=== PATIENT | male | born 1965 | race Caucasian/White ===

== ENCOUNTER 2021-02-15 17:52 | Observation (INO) ==
[2021-02-15] MEDS ORDERED: SODIUM CHLORIDE 0.9% 1,000 ML IV STA (18:21)
[2021-02-15 18:28] LABS: Basophils # 0.1 10*3/uL (0.0-0.2); Basophils % 0.8 % (0.0-0.8); Eosinophils # 0.2 10*3/uL (0.0-0.87); Eosinophils % 1.8 % (0.00-10.9); Hematocrit 44.2 VOL% (42.0-52.0); Hemoglobin 14.6 GM/DL (14.0-18.0); Immature Granulocytes % 0.7 %; Immature Granulocytes Absolute 0.09 #; Lymphocytes # 1.8 10*3/uL (1.4-4.0); Lymphocytes % 13.5 % (21.2-54.2); Mean Corpuscular Volume 96.7 FL (87-102); Mean Platelet Volume 10.4 FL (9.6-12.0); Monocytes % 6.1 % (1.7-12.7); Neutrophils % 77.1 % (38.7-73.9); Platelet Count 193 T/CUMM (130-400); Red Blood Count 4.57 MC/CUMM (3.8-5.5); Red Cell Distribution Width 13.9 % (9.3-17.3); White Blood Count 13.1 T/CUMM (4-12)
[2021-02-15 19:01] LABS: Acetaminophen < 2.0 UG/ML (10-30); Salicylate < 2.8 MG/DL (2.8-20)
[2021-02-15 19:10] LABS: Bacteria,Urine Occasional /HPF (Few); Bilirubin,Urine Negative (Negative); Blood, Urine Negative (Negative); Glucose,Urine (UA) Negative (Negative); Ketones,Urine 5 mg/dL (Negative); Mucus,Urine Occasional /LPF (Occasional); Nitrite,Urine Negative (Negative); Protein,Urine Negative; Squamous Epithelial Cell,Urine Occasional /HPF (0-10); Urine Appearance CLEAR (Clear); Urine Color Yellow (Yellow); Urine Specific Gravity 1.024 (1.001-1.035)
[2021-02-15 19:14] LABS: Alanine Aminotransferase 26 U/L (16-61); Albumin 3.8 G/DL (3.4-5.0); Alkaline Phosphatase 71 U/L (45-117); Aspartate Amino Transferase 19 U/L (0-37); Blood Urea Nitrogen 16 MG/DL (7-18); Calcium 8.8 MG/DL (8.5-10.1); Carbon Dioxide 26 MMOL/L (21-32); Estimated Glom Filtration Rate 0 ML/MIN; Glucose 97 MG/DL (74-106); Osmolality,Calculated 277.5 MOS/KG (273-304); Potassium 4.3 MMOL/L (3.5-5.1); Sodium 139 MMOL/L (136-145); Thyroid Stimulating Hormone 0.453 uIU/ml (0.358-3.74)
[2021-02-15 19:15] LABS: Barbiturates Screen,Urine Negative (Negative); Benzodiazepines Screen,Urine Negative (Negative); Cannabinoid Screen,Urine Negative (Negative); Opiate Screen,Urine Negative (Negative); Phencyclidine Screen,Urine Negative (Negative)
[2021-02-16 00:07] LABS: Barbiturates Screen,Urine Negative (Negative); Benzodiazepines Screen,Urine Negative (Negative); Cannabinoid Screen,Urine Negative (Negative); Opiate Screen,Urine Negative (Negative); Phencyclidine Screen,Urine Negative (Negative)
[2021-02-16] MEDS ORDERED: diphenhydrAMINE CAP 25 MG CAPSULE PO PRN (00:31)
[2021-02-16] MEDS ORDERED: ACETAMINOPHEN 325 MG TABLET PO PRN (00:31)
[2021-02-16] MEDS ORDERED: hydrALAZINE 20 MG/1 ML VIAL IV PRN (00:31)
[2021-02-16] MEDS ORDERED: GLUCAGON 1 MG VIAL IM PRN (00:31)
[2021-02-16] MEDS ORDERED: NICOTINE 21 MG/24 HR PATCH TRANSDERM PRN (00:31)
[2021-02-16] MEDS ORDERED: ONDANSETRON 4 MG/2 ML VIAL IV PRN (00:31)
[2021-02-16] MEDS ORDERED: ZALEPLON 5 MG CAPSULE PO PRN (00:31)
[2021-02-16] MEDS ORDERED: DEXTROSE 50% 25 GM/50 ML VIAL IV PRN (00:31)
[2021-02-16] MEDS ORDERED: guaiFENesin/DM ER 600-30 MG TABLET PO PRN (00:31)
[2021-02-16] MEDS: SODIUM CHLORIDE 0.9% 1,000 ML IV SCH ×3 (01:50→21:07)
[2021-02-16 05:06] LABS: Basophils # 0.1 10*3/uL (0.0-0.2); Basophils % 0.8 % (0.0-0.8); Eosinophils # 0.2 10*3/uL (0.0-0.87); Eosinophils % 2.2 % (0.00-10.9); Hematocrit 45.9 VOL% (42.0-52.0); Hemoglobin 14.8 GM/DL (14.0-18.0); Immature Granulocytes % 0.4 %; Immature Granulocytes Absolute 0.04 #; Lymphocytes % 22.3 % (21.2-54.2); Mean Corpuscular HGB Conc 32.2 GM/DL (32-36); Mean Platelet Volume 10.6 FL (9.6-12.0); Neutrophils % 66.3 % (38.7-73.9); Platelet Count 153 T/CUMM (130-400); Red Blood Count 4.59 MC/CUMM (3.8-5.5); Red Cell Distribution Width 13.7 % (9.3-17.3); White Blood Count 9.2 T/CUMM (4-12)
[2021-02-16 05:36] LABS: Calcium 8.7 MG/DL (8.5-10.1); Osmolality,Calculated 271.8 MOS/KG (273-304); Potassium 4.1 MMOL/L (3.5-5.1)
[2021-02-16] MEDS ORDERED: GABAPENTIN 100 MG CAPSULE PO SCH (09:00)
[2021-02-16] MEDS: METOPROLOL TARTRATE 50 MG TABLET PO SCH ×2 (09:29→20:14)
[2021-02-16] MEDS: amLODIPine 10 MG TABLET PO SCH (09:29)
[2021-02-16] MEDS: PANTOPRAZOLE 40 MG TABLET PO SCH (09:29)
[2021-02-16] MEDS: MULTIVITAMIN (CENTRUM) TABLET PO SCH (09:29)
[2021-02-16] MEDS: FOLIC ACID 1 MG TABLET PO SCH (09:30)
[2021-02-16] MEDS: THIAMINE 100 MG TABLET PO SCH ×2 (09:30→20:13)
[2021-02-16] MEDS: CYCLOBENZAPRINE 10 MG TABLET PO PRN (12:14)
[2021-02-16] MEDS: GABAPENTIN 100 MG CAPSULE PO SCH ×2 (15:59→20:13)
[2021-02-17] MEDS: SODIUM CHLORIDE 0.9% 1,000 ML IV SCH ×2 (06:49→16:53)
[2021-02-17] MEDS: THIAMINE 100 MG TABLET PO SCH ×2 (10:02→20:48)
[2021-02-17] MEDS: MULTIVITAMIN (CENTRUM) TABLET PO SCH (10:02)
[2021-02-17] MEDS: GABAPENTIN 100 MG CAPSULE PO SCH ×3 (10:02→20:48)
[2021-02-17] MEDS: amLODIPine 10 MG TABLET PO SCH (10:03)
[2021-02-17] MEDS: FOLIC ACID 1 MG TABLET PO SCH (10:03)
[2021-02-17] MEDS: METOPROLOL TARTRATE 50 MG TABLET PO SCH ×2 (10:03→20:48)
[2021-02-17] MEDS: PANTOPRAZOLE 40 MG TABLET PO SCH (10:03)
[2021-02-17] MEDS: CYCLOBENZAPRINE 10 MG TABLET PO PRN (16:49)
[2021-02-18] MEDS: SODIUM CHLORIDE 0.9% 1,000 ML IV SCH (06:24)
[2021-02-18] MEDS: METOPROLOL TARTRATE 50 MG TABLET PO SCH ×2 (09:10→20:36)
[2021-02-18] MEDS: GABAPENTIN 100 MG CAPSULE PO SCH ×3 (09:10→20:36)
[2021-02-18] MEDS: amLODIPine 10 MG TABLET PO SCH (09:10)
[2021-02-18] MEDS: THIAMINE 100 MG TABLET PO SCH ×2 (09:10→20:36)
[2021-02-18] MEDS: PANTOPRAZOLE 40 MG TABLET PO SCH (09:10)
[2021-02-18] MEDS: MULTIVITAMIN (CENTRUM) TABLET PO SCH (09:10)
[2021-02-18] MEDS: FOLIC ACID 1 MG TABLET PO SCH (09:10)
[2021-02-19] MEDS: GABAPENTIN 100 MG CAPSULE PO SCH (09:28)
[2021-02-19] MEDS: MULTIVITAMIN (CENTRUM) TABLET PO SCH (09:28)
[2021-02-19] MEDS: amLODIPine 10 MG TABLET PO SCH (09:28)
[2021-02-19] MEDS: PANTOPRAZOLE 40 MG TABLET PO SCH (09:28)
[2021-02-19] MEDS: FOLIC ACID 1 MG TABLET PO SCH (09:28)
[2021-02-19] MEDS: METOPROLOL TARTRATE 50 MG TABLET PO SCH (09:28)
[2021-02-19] MEDS: THIAMINE 100 MG TABLET PO SCH (09:33)
[2021-02-19 11:21] VITALS: BP 128/83
== END 2021-02-19 12:33 | disposition home or self-care (01) ==
LOC: N.EDINP 17:52 → N.ED 17:52 → N.5E 02-16 01:39
PROVIDERS: ADMIT Internal Medicine; ATTEND Internal Medicine